=== PATIENT | male | born 1970 | race Caucasian/White ===

== ENCOUNTER 2021-10-24 01:03 | Inpatient (IN) | payer SELFPAY ==
[2021-10-24] MEDS ORDERED: Morphine 4 MG/ML VIAL ONE (01:21)
[2021-10-24] MEDS ORDERED: Ondansetron PF 4 MG/2 ML Vial ONE ×2 (01:22→14:19)
[2021-10-24] MEDS ORDERED: Dextrose 5% in Water 1,000 ML IV PRN (01:29)
[2021-10-24] MEDS ORDERED: Dextrose 50% Abboject 50 ML SYRINGE SLOW IVP PRN (01:29)
[2021-10-24] MEDS ORDERED: Ondansetron PF 4 MG/2 ML Vial IVP PRN (01:29)
[2021-10-24] MEDS ORDERED: hydrALAZINE 20 MG/ML VIAL SLOW IVP PRN (01:29)
[2021-10-24] MEDS ORDERED: Cyclobenzaprine 10 MG TAB PO PRN (01:41)
[2021-10-24] MEDS ORDERED: traMADol HCl 50 MG TAB PO PRN ×2 (01:41)
[2021-10-24] MEDS ORDERED: Morphine 4 MG/ML VIAL SLOW IVP PRN (01:42)
[2021-10-24 05:31] VITALS: BMI 24.2
[2021-10-24] MEDS ORDERED: ceFAZolin Sodium/D5W 2 GM in Premix Bag 1 BAG IVPB SCH (06:00)
[2021-10-24] MEDS: Sodium Chloride 0.9% 1,000 ML IV SCH ×3 (06:07→20:05)
[2021-10-24] MEDS: Acetaminophen 500 MG TAB PO SCH ×3 (06:08→19:52)
[2021-10-24] MEDS: ceFAZolin 2 GM/Dextrose 50 ML 2 GM in Premix Bag 1 BAG IVPB SCH ×3 (06:46→21:21)
[2021-10-24 08:10] LABS: #Monocytes 0.8 thou/uL (0.11-0.59); #Neutrophils 8.3 thou/uL (1.40-6.50); %Basophils 0.2 % (0.0-1.0); %Eosinophils 0.3 % (0.0-10.0); %Lymphocytes 17.7 % (21.0-51.0); %Monocytes 7.3 % (0.0-10.0); %Neutrophils 74.4 % (42.0-75.0); Hemoglobin 13.1 g/dL (14.0-18.0); Mean Corpuscular HGB CONC 33.6 g/dL (32.0-36.0); Mean Corpuscular Hemoglobin 31.2 pg (27.0-31.0); Mean Corpuscular Volume 92.9 fL (78.0-98.0); Mean Platelet Volume 6.5 fL (7.4-10.4); Platelet Count 252 thou/uL (130-400); RBC Distribution Width 11.6 % (11.5-14.5); Red Blood Cell (RBC) Count 4.19 mill/uL (4.70-6.10); White Blood Cell (WBC) Count 11.2 thou/uL (4.8-10.8)
[2021-10-24 08:30] LABS: Anion Gap 13 mmol/L (10-20); BUN (Urea Nitrogen) 17 mg/dL (8.9-20.6); Calc. Creatinine Clearance 72 mL/min (70-130); Calcium 8.6 mg/dL (7.8-10.44); Carbon Dioxide 21 mmol/L (22-29); Chloride 104 mmol/L (98-107); Glucose 102 mg/dL (70-105); Magnesium 2.1 mg/dL (1.6-2.6); Potassium 4.1 mmol/L (3.5-5.1); Sodium 134 mmol/L (136-145)
[2021-10-24] MEDS ORDERED: FLU VACC QS2021-22(6MOS UP)/PF 60 MCG/0.5 ML SYRINGE IM ONE (09:00)
[2021-10-24] MEDS: Senokot S 8.6-50 MG TAB PO SCH ×2 (09:28→21:21)
[2021-10-24] MEDS: Gabapentin 300 MG CAP PO SCH ×3 (09:28→21:21)
[2021-10-24] MEDS: Famotidine 20 MG TAB PO SCH ×2 (09:28→21:20)
[2021-10-24] MEDS: Polyethylene Glycol 3350 17 GM Packet PO SCH (09:29)
[2021-10-24] MEDS ORDERED: Fentanyl 100 MCG/2 ML VIAL ONE (13:30)
[2021-10-24] MEDS ORDERED: Midazolam HCl 2 mg/2 ml Vial ONE (13:30)
[2021-10-24] MEDS ORDERED: Sodium Chloride 0.9% 10 ML ONE (13:30)
[2021-10-24] MEDS ORDERED: HYDROmorphone 2 MG/ML VIAL ONE (13:30)
[2021-10-24] MEDS ORDERED: ceFAZolin 2 GM/Dextrose 50 ML IVPB ONE (13:50)
[2021-10-24] MEDS ORDERED: PROPOFOL 200 MG/20 ML VIAL ONE (14:19)
[2021-10-24] MEDS ORDERED: Lidocaine 1% PF 5 ML VIAL ONE (14:19)
[2021-10-24] MEDS ORDERED: Rocuronium Bromide 10 MG/ML (10ML VIAL) ONE (14:19)
[2021-10-24] MEDS ORDERED: PHENYLEPHRINE-NS 100 MCG/ML 10 ML SYRINGE ONE (14:19)
[2021-10-24] MEDS ORDERED: Glycopyrrolate 0.2 MG/ML 5 ML SYRINGE ONE (14:19)
[2021-10-24] MEDS ORDERED: ePHEDrine 50 MG/ML VIAL ONE (14:19)
[2021-10-24] MEDS ORDERED: Dexamethasone 20 MG/5 ML VIAL ONE (14:19)
[2021-10-24] MEDS ORDERED: SUGAMMADEX SODIUM 200 MG/2 ML VIAL ONE (15:04)
[2021-10-24] MEDS ORDERED: Promethazine HCl 25 MG/ML VIAL IVPB PRN (15:35)
[2021-10-24] MEDS ORDERED: Meperidine HCl/PF 25 MG/ML VIAL SLOW IVP PRN (15:35)
[2021-10-24] MEDS ORDERED: Ondansetron HCl/PF 4 MG/2 ML Vial IVP PRN (15:35)
[2021-10-24] MEDS ORDERED: Promethazine HCl 25 MG/ML VIAL IM PRN (15:35)
[2021-10-24] MEDS ORDERED: EPINEPHrine 1 MG/ML AMP ONE (15:35)
[2021-10-24] MEDS ORDERED: Bupivacaine 0.5% 10 ML VIAL ONE ×2 (15:35)
[2021-10-24] MEDS ORDERED: HYDROmorphone 2 MG/ML VIAL SLOW IVP PRN (15:35)
[2021-10-24 21:58] LABS: Amphetamine Detected (NotDetected); Barbiturates Screen Not Detected (NotDetected); Benzodiazepine Screen Not Detected (NotDetected); Cocaine Metabolite Screen Not Detected (NotDetected); Methadone Not Detected (NotDetected); Methamphetamine Detected (NotDetected); Opiate Screen Detected (NotDetected); Oxycodone Screen Not Detected (NotDetected); Phencyclidine (PCP) Not Detected (NotDetected); THC/Cannabinoid Screen Not Detected (NotDetected); Tricyclic Screen Not Detected (NotDetected)
[2021-10-25] MEDS: Acetaminophen 500 MG TAB PO SCH ×3 (00:03→12:23)
[2021-10-25] MEDS: ceFAZolin 2 GM/Dextrose 50 ML 2 GM in Premix Bag 1 BAG IVPB SCH ×2 (05:46→14:00)
[2021-10-25 07:43] LABS: #Basophils 0.1 thou/uL (0.0-0.2); #Lymphocytes 2.1 thou/uL (1.20-3.40); #Monocytes 0.9 thou/uL (0.11-0.59); #Neutrophils 8.5 thou/uL (1.40-6.50); %Basophils 0.5 % (0.0-1.0); %Eosinophils 0.1 % (0.0-10.0); %Monocytes 7.4 % (0.0-10.0); %Neutrophils 74.1 % (42.0-75.0); Hemoglobin 12.8 g/dL (14.0-18.0); Mean Corpuscular HGB CONC 33.3 g/dL (32.0-36.0); Mean Corpuscular Volume 93.1 fL (78.0-98.0); Mean Platelet Volume 6.7 fL (7.4-10.4); Platelet Count 239 thou/uL (130-400); RBC Distribution Width 11.8 % (11.5-14.5); Red Blood Cell (RBC) Count 4.14 mill/uL (4.70-6.10); White Blood Cell (WBC) Count 11.5 thou/uL (4.8-10.8)
[2021-10-25 08:07] LABS: Anion Gap 14 mmol/L (10-20); BUN (Urea Nitrogen) 16 mg/dL (8.9-20.6); Calc. Creatinine Clearance 73 mL/min (70-130); Calcium 8.7 mg/dL (7.8-10.44); Carbon Dioxide 21 mmol/L (22-29); Chloride 102 mmol/L (98-107); Glucose 117 mg/dL (70-105); Phosphorus 3.3 mg/dL (2.3-4.7); Potassium 4.1 mmol/L (3.5-5.1); Sodium 133 mmol/L (136-145)
[2021-10-25] MEDS: Polyethylene Glycol 3350 17 GM Packet PO SCH (09:10)
[2021-10-25] MEDS: Gabapentin 300 MG CAP PO SCH ×2 (09:10→14:51)
[2021-10-25] MEDS: Senokot S 8.6-50 MG TAB PO SCH (09:10)
[2021-10-25] MEDS: Famotidine 20 MG TAB PO SCH (09:11)
[2021-10-25 12:30] VITALS: BP 122/75; TEMP 98.4
[2021-10-25] MEDS ORDERED: Cephalexin 250 MG CAP PO SCH (18:00)
== END 2021-10-25 15:45 | disposition home or self-care (01) | DRG 604 ==
LOC: ERS 01:03 → SJJU 01:29
PROVIDERS: ADMIT Specialist; ATTEND Specialist
PROC: 0H96XZZ Drainage of Back Skin, External Approach (ICD-10-PCS; principal; 2021-10-24)
DX: S21.229A Laceration with foreign body of unspecified back wall of thorax without penetration into thoracic cavity, initial encounter (principal); S22.079 Unspecified fracture of T9-T10 vertebra; N17.9 Acute kidney failure, unspecified; Z20.822 Contact with and (suspected) exposure to COVID-19; F17.210 Nicotine dependence, cigarettes, uncomplicated; X58.XXXA Exposure to other specified factors, initial encounter
CPT/HCPCS: 36415; 80048; 80306; 80307; 83735; 84100; 85025; 86850; 86900; 86901; 94640; G0390; J0171; J0690; J1100; J1170; J2250; J2270; J2405; J2704; J3010; J3490; J7050; J7620